=== PATIENT | female | born 1955 | race Caucasian/White ===

== ENCOUNTER → 2021-03-26 10:32 | Outpatient (REF) | payer BC, SELFPAY ==
--- NOTE | ~2021-03-26 | NM_ITS ---
EXAMINATION: NM BONE SCAN OF THE WHOLE BODY CLINICAL INFORMATION: History of fall. Mid and lower back pain. COMPARISON: None. TECHNIQUE: Multiple gamma scintillation camera images of the whole body were performed 3 hours following the intravenous administration of 20 mCi Tc-99m MDP. FINDINGS: In the head, no abnormality seen. In the thoracic cage and upper extremities, there are focal areas of isotope activity left left posterior 5th rib, left posterior 6th, 7th and 8th costovertebral junction, right 7th and 8th posterior ribs. There is focal isotope activity left anterior 4th anterior rib likely focal contusion or fracture. These above findings are suggestive of fracture, likely traumatic. In the spine, there is focal increased activity seen in the T7, L1 and L4 vertebrae, consistent with compression fractures. No additional areas of abnormal activity seen within the spine. In the pelvis, no abnormal activity seen in the pelvis. In the lower extremities, there is mild increased activity seen in the left ankle joint question degenerative changes. No other definite bony abnormalities are noted. The urinary bladder and faint visualization of both kidneys are noted. NM/NM bone scan whole body IMPRESSION: Abnormal transverse isotope activity T7, L1 and L4 vertebra consistent with acute compression fractures. There are bilateral posterior rib activity suggestive of fractures, likely traumatic.
== END ==
LOC: HO.NUCMED 10:32
PROVIDERS: Visit Provider Registered Nurse
DX: Z87.81 Personal history of (healed) traumatic fracture (principal)
CPT/HCPCS: 78306; A9503

== ENCOUNTER 2021-04-29 10:14 | Day surgery (SDC) | payer BC, SELFPAY ==
[2021-04-29] VITALS (9 sets, daily range): BP systolic 102–118; BP diastolic 70–90; PULSE 76–92; RESP 16–20; TEMP 36.3–36.7; O2SAT 92–98; BMI 32.2
--- NOTE | ~2021-04-29 | IR_ITS ---
EXAMINATION: IR LUMBAR VERTEBROPLASTY CLINICAL INFORMATION: Acute L1, L4 and L5 compression fractures secondary to osteoporosis and long-term steroid use. Patient has significant pain and difficulty ambulating. COMPARISON: Bone scan 03/26/2021. TECHNIQUE: Following explaining L1, L4 and L5 kyphoplasty procedure in detail, benefits and risks, a written consent was obtained. Patient was placed prone on fluoroscopy table and low back area was cleaned from above the T12 vertebra through the upper sacrum. Initially the right L5 pedicle was localized on skin and 1% lidocaine was administered. A 22-gauge spinal needle was advanced to the level of right pedicle periosteum and 0.25% Sensorcaine administered. Through a small skin incision a 10-gauge Kyphon needle was advanced from the skin to the level of right pedicle and through the pedicle into the posterior one-third of L5 vertebra. A second needle was advanced in a similar fashion through the left pedicle into posterior one-third vertebra. A fourth and fifth 10-gauge needle was advanced to the right and left pedicle L4 vertebra followed by a fifth and sixth needle through the right and left pedicle of L1 vertebra. A simple drill was administered through each of these needles and a track created. High tensile balloons were inserted into the vertebral body and inflated to 250 psi for 5-10 minutes. The balloons were deflated and removed. Freshly prepared polymethylmethacrylate was injected rapidly through the right and left needles of L5, L4 and L1 vertebrae within 10 minutes before the cement was solidified. After achieving adequate amount cement and observing no posterior cement leak, both needles at these 3 lumbar levels were removed and complete hemostasis achieved at puncture site. Simple Band-Aid applied at these 6 puncture sites. Patient was sedated by anesthesia. FINDINGS: On fluoroscopy images there is inferior endplate compression fracture at L1, L4 and L5 vertebrae. There is adequate amount of cement seen occupying the 3 vertebrae with minimal paravertebral venous plexus opacified on the right at L1 vertebra and on the left at L5 vertebra. No posterior extravasation seen into the spinal canal. FLUOROSCOPY TIME: 18.8 minutes. DOSE AREA PRODUCT: 6775 uGy-m2 (microgray-meter squared) IR/IR kyphoplasty lumbar IMPRESSION: Successful fluoroscopy-guided L1, L4 and L5 bipedicle approach kyphoplasty performed without immediate complications.
--- NOTE | ~2021-04-29 | CT_ITS ---
EXAMINATION: CT LUMBAR SPINE WITHOUT CONTRAST CLINICAL INFORMATION: Compression fracture L1 and L4 vertebra on preceding bone scan 03/26/2021. Acute low back pain. Osteoporosis. On Prednisone 10 mg for several years. COMPARISON: None TECHNIQUE: 2 mm thin axial and reformatted 2 mm thin sagittal and coronal images of lumbar spine were obtained without contrast. This CT examination was performed using dose optimization techniques as appropriate, variously including the following: *Automated exposure control *Adjustment of mA and/or kV according to patient size (this includes techniques or standardized protocols for targeted exams where dose is matched to indication/reason for exam; i.e. extremities or head) *Use of iterative reconstruction technique DLP; 262 mGy-cm FINDINGS: On sagittal reconstructed images there is maintained lumbar lordosis. There is loss of L1, L4 and L5 vertebral heights secondary to loss of inferior endplate heights from acute compression fracture. There is no posterior bony component seen causing any other disc levels except for minimal bulges at L3-L4, L4-L5 and L5-S1 disc level. There is mild AP canal stenosis L4-L5 and L5-S1 disc levels. The neural foramina are patent bilaterally. Visualized L2, L3 vertebral heights are normal. There is minimal depression of superior endplate T12 vertebra. The paravertebral soft tissues are normal. Incidental finding of bilateral nonobstructive radiopaque renal calculi. CT/CT lumbar spine wo con IMPRESSION: Acute L1, L4, and L5 compression fractures involving inferior endplates without any posterior bony component secondary to osteoporosis and long-term Prednisone treatment.
--- NOTE | ~2021-04-29 | CT_ITS ---
EXAMINATION: CT LUMBAR SPINE CLINICAL INFORMATION: 65-year-old status post multilevel kyphoplasty. COMPARISON: Preprocedural CT of the same day. TECHNIQUE: Volumetric CT imaging of the lumbar spine was done from T12 to the sacrum with multiplanar reformatted reconstructions. This CT examination was performed using dose optimization techniques as appropriate, variously including the following: *Automated exposure control *Adjustment of mA and/or kV according to patient size (this includes techniques or standardized protocols for targeted exams where dose is matched to indication/reason for exam; i.e. extremities or head) *Use of iterative reconstruction technique DLP: 263 mGy-cm FINDINGS: Alignment: Slight mid lumbar levocurvature noted stable from previous exam. The lumbosacral spine is anatomically aligned in the sagittal plane. Lumbosacral Junction: Normal. Vertebral Bodies: Patient is noted be status post kyphoplasty, with methylmethacrylate cement noted in the L5, L4 and L1 vertebral bodies. Stable inferior endplate compression fracture deformity of L1 compared to preprocedural study. Stable compression fracture deformities primarily along the inferior endplates of L4 and L5 compared to preprocedural study. No interval change in height of these vertebral bodies from previous exam. There is a mild chronic superior endplate compression deformity of T12, which is stable. Diffuse osteopenia is noted, with a CT number of 75 Hounsfield units at the L2 vertebral body consistent with osteoporosis. Disc Spaces and Endplates: Intervertebral disc space heights are well-maintained, stable from previous study. Intradiscal vacuum disc phenomenon at L5-S1 is slightly less prominent on current exam. Minimal intradiscal vacuum disc phenomenon at L1-L2 slightly less prominent on current study. SPINAL LEVELS: L5-S1: Epidural lipomatosis with a constricted appearance to the thecal sac at this level is noted, unchanged. Mild diffuse disc bulging and spurring of the inferior endplate of L5 with slight retropulsion of the inferior endplate is stable. Disc bulging contacts the S1 nerve root sleeves bilaterally, unchanged. No significant lateral recess or neuroforaminal stenosis with stable mild facet arthropathy. There is some methylmethacrylate cement seen within small bilateral paravertebral veins. No extravasation into the disc space or epidural space. L4-L5: Prominent dorsal epidural fat pad at this level with diffuse disc bulging and flattening of the ventral dural sac. Moderate central spinal canal stenosis is unchanged, with crowding of the subarticular zone on the left, suggesting a possible superimposed left subarticular disc protrusion. Ligamentum flavum thickening is noted without significant facet arthrosis. There is moderate bilateral neural foraminal stenosis. No significant extravasation of cement. L3-L4: Minor disc bulging noted. No significant canal or neuroforaminal stenosis. L2-L3: Minor annular bulging. No significant canal or neuroforaminal stenosis. L1-L2: Slight retropulsion of the inferior endplate of the compressed L1 vertebral body noted with minimal encroachment on the ventral dural sac stable in appearance. No canal or neuroforaminal stenosis. Note that there is methylmethacrylate cement within paravertebral veins on both sides of the L1 vertebral body, left more than right with no evidence for extravasation into the epidural space or intervertebral disc space. T12-L1 and T11-T12 demonstrate no disc bulge or herniation and no significant canal or neural foraminal stenosis. Paraspinal/Retroperitoneal: Probable sliding hiatal hernia incidentally, incompletely visualized. Indeterminate subcentimeter left adrenal nodule noted. Atheromatous calcifications of the abdominal aorta and iliac vessels noted. Otherwise the paravertebral soft tissues appear grossly unremarkable. CT/CT lumbar spine post vert IMPRESSION: 1. Status post multilevel kyphoplasties at L1, L4 and L5 as described above. See above for details. No change in vertebral body heights when compared to the preprocedural study. 2. Epidural lipomatosis at L5-S1 with a constricted appearance to the thecal sac at this level, multilevel disc bulging and a prominent dorsal epidural fat pad at L4-L5, with moderate central spinal canal stenosis at L4-L5 and crowding of the subarticular zone on the left suggesting a possible superimposed left subarticular disc herniation. Suggest correlation with any previous MRIs. 3. Moderate bilateral neural foraminal stenosis at L4-L5. 4. Incidental probable hiatal hernia and a subcentimeter left adrenal nodule, which is an indeterminate finding. Recommend follow-up cross-sectional imaging in one year to reassess.
[2021-04-29 11:11] LABS: MANUAL DIFF FLAG NO
[2021-04-29 11:14] LABS: Basophils Absolute Auto 0.1 X10*3/uL (0.0-0.2); Basophils Percent Auto 0.5 % (0-2); Eosinophils Absolute Auto 0.2 X10*3/uL (0.0-0.4); Eosinophils Percent Auto 1.1 % (0-4); Hematocrit 42.7 % (37.0-47.0); Hemoglobin 13.4 g/dl (12.0-16.0); Imm Gran Abs Auto 0.16 X10*3/uL (0.00-0.03); Imm Gran Pct Auto 0.9 % (0.0-0.4); Lymphocytes Absolute Auto 2.7 X10*3/uL (1.2-4.9); Lymphocytes Percent Auto 15.8 % (20-40); Mean Corpuscular HGB Conc 31.4 g/dl (31.0-35.0); Mean Corpuscular Hemoglobin 31.2 pg (27.0-33.0); Mean Corpuscular Volume 99.3 fL (80.0-98.0); Mean Platelet Volume 9.3 fL (9.4-12.3); Monocytes Absolute Auto 1.1 X10*3/uL (0.1-1.2); Monocytes Percent Auto 6.2 % (2-11); Neutrophils Percent Auto 75.5 % (45-73); Platelet Count 479 X10*3/uL (160-400); Red Cell Distribution Width 13.5 % (11.0-16.0); White Blood Count 17.2 X10*3/uL (4.8-10.8)
[2021-04-29 11:23] LABS: Prothrombin Time 10.9 SEC (9.9-13.0)
[2021-04-29 11:26] LABS: Partial Thromboplastin Time 34.3 SEC (24.1-38.0)
[2021-04-29 11:39] LABS: Anion Gap 16 (12-20); Blood Urea Nitrogen 10 mg/dL (9-16); Carbon Dioxide 26 mmol/L (22-29); Chloride 105 mmol/L (96-108); Creatinine Clr Calc Pharmacy 44.1; Estimated Glomerular Filt Rate > 60; Potassium 3.7 mmol/L (3.3-5.1); Sodium 143 mmol/L (135-145)
--- NOTE | 2021-04-29 12:13 | P.CONAN_ITS ---
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 Are you DNR?: No Advance Directives: No Advance Directives Information Provided: Yes Meds Allergies Allergy/AdvReac Type Severity Reaction Status Date / Time levofloxacin [From Levaquin] Allergy Intermediate Hallucinati Verified 04/29/21 11:18 ons Active Medications: Current Medications Lactated Ringer's (Lr) 1,000 mls @ 100 mls/hr IVCONT .Q10H ELSY Exam Exam Date and Time: April 29, 2021 1213 Height,Weight and Vital Signs: Height 4 ft 1 in Weight 49.895 kg Pertinent Lab Results Pertinent Lab Results: Laboratory Tests 04/29/21 04/29/21 04/29/21 11:04 11:04 11:04 WBC 17.2 H RBC 4.30 Hgb 13.4 Hct 42.7 MCV 99.3 H MCH 31.2 MCHC 31.4 RDW 13.5 Plt Count 479 H MPV 9.3 L Immature Gran % (Auto) 0.9 H Neut % (Auto) 75.5 H Lymph % (Auto) 15.8 L [place] % (Auto) 6.2 Eos % (Auto) 1.1 Baso % (Auto) 0.5 Lymph # (Auto) 2.7 [place] # (Auto) 1.1 Eos # (Auto) 0.2 Baso # (Auto) 0.1 Abs Immat Gran (auto) 0.16 H Absolute Neuts (auto) 13.0 H Absolute Nucleated RBC 0.000 Nucleated RBC % (auto) 0.0 PT 10.9 INR 1.0 APTT 34.3 Sodium 143 Potassium 3.7 Chloride 105 Carbon Dioxide 26 Anion Gap 16 BUN 10 Creatinine 0.66 Estim Creat Clear Calc 44.1 Estimated GFR > 60 Airway Mallampati Class: II TM Dist: >3cm Neck ROM: Full Denture: Upper and Lower Loose/Missing/Broken Teeth: Yes Heart: [id number] Lungs: cta b/l Assessment and Plan Assessment Anesthesia Assessment: Anesthesia Plan Discussed and Chart Reviewed Final Anesthetic Review Family History of Problems with Anesthesia: No History of Problems with Anesthesia: No NPO: Yes ASA Class: III Final Preanesthetic Review: No Changes in Pt Med Stat, Meds/Allgs Chart Reviewed, Consent Obtained/Reviewed and Anes Risks/Benef Reviewed Patient Risk: Intermediate Procedure Risk: Intermediate Assessment/Block/Sedation in SS: Assess/Block/Sedation-SS Anesthetic Plan Anesthetic Plan: MAC: and Agree w/ Assess. and Plan Disposition: Standard PACU
[2021-04-29] MEDS: Lidocaine HCl 1 % MPF 5 ML VIAL 10 ML INFILTRATI (13:55)
[2021-04-29] MEDS: iohexoL 300 MG/ML 50 ML INFUS..BTL 75 ML INTRAUTERI (13:59)
[2021-04-29] MEDS: HYDROmorphone HCl 0.5 MG/0.5 ML SYRINGE IVPUSH (14:40)
== END 2021-04-29 17:01 | disposition home or self-care (01) ==
PROVIDERS: Radiology Diagnostic Radiology; PCP Registered Nurse; Visit Provider Radiology Diagnostic Radiology
DX: M80.88XA Other osteoporosis with current pathological fracture, vertebra(e), initial encounter for fracture (principal); M54.50 Low back pain, unspecified; F11.20 Opioid dependence, uncomplicated; Z79.899 Other long term (current) drug therapy; Z79.52 Long term (current) use of systemic steroids; Z88.8 Allergy status to other drugs, medicaments and biological substances
CPT/HCPCS: 22514; 22515; 36415; 72131; 80051; 82565; 84520; 85025; 85610; 85730; J0690; J1100; J1170; J2250; J2405; J3010; Q9967